=== PATIENT | female | born 1960 | race Caucasian/White ===

== ENCOUNTER → 2017-09-12 | Outpatient (CLI) | payer OTHER ==
[~2017-09-12] MED LIST: COLCHICINE0.6 M1 PO; INDOMETHACIN 2525 MG PO; NORCO 5-325 TA1 EAC1 PO
== END ==
LOC: M.RAD 17:19
DX: M79.671 Pain in right foot (principal)

== ENCOUNTER → 2017-12-26 | Outpatient (CLI) | payer OTHER | LOC: M.RAD 13:58 | DX: Z12.31 Encounter for screening mammogram for malignant neoplasm of breast (principal); M50.322 Other cervical disc degeneration at C5-C6 level ==

== ENCOUNTER → 2019-12-09 | Outpatient (CLI) | payer OTHER ==
--- NOTE | 2019-12-09 13:14 | 2DMMODE ---
[place] [address] 2 D/M-MODE ECHOCARDIOGRAM Name: CORTEZ LOTT Room: [facility]#: [id number] Admission: 12/09/19 Attend Phys: Reinier Freeman, Discharge: Date of : 64 Date of Service: 12/09/19 1313 Report #: [id number] THIS REPORT FOR: cc: Sarah Monterroso. Sarah Nielsen. Vinayak Mac MD [facility] ~ APPROVED REPORT Study performed: 12/09/2019 11:04:19 EXAM: Comprehensive 2D, Doppler, and color-flow Echocardiogram Patient Location: Out-Patient BSA: 2.02 HR: 54 bpm BP: 144/70 mmHg Other Information Study Quality: Fair Indications Assess for vegetation 2D Dimensions IVSd: 10.67 (7-11mm) LVOT Diam: 19.06 (18-24mm) LVDd: 40.25 mm PWd: 8.60 (7-11mm) Ascending Ao: 29.02 (22-36mm) LVDs: 23.11 (25-40mm) Aortic Root: 25.37 mm Volumes Left Atrial Volume (Systole) LA ESV Index: 18.60 mL/m2 Aortic Valve AoV Peak Morris.: 0.89 m/s AO Peak Gr.: 3.14 mmHg LVOT Max P.55 mmHg AO Mean Gr.: 1.78 mmHg LVOT Mean P.25 mmHg LVOT Max V: 0.80 m/s AO V2 VTI: 18.40 cm LVOT Mean V: 0.52 m/s SHARI (VTI): 2.59 cm2 LVOT V1 VTI: 16.73 cm Mitral Valve E/A Ratio: 1.03 [place] [address] 2 D/M-MODE ECHOCARDIOGRAM Name: CORTEZ LOTT Room: [facility]#: [id number] Admission: 12/09/19 Attend Phys: Reinier Freeman, Discharge: Date of : 64 Date of Service: 12/09/19 1313 Report #: [id number] MV Decel. Time: 155.40 ms MV E Max Morris.: 0.70 m/s MV PHT: 45.06 ms MVA (PHT): 4.88 cm2 TDI E/Lateral E': 4.67 E/Medial E': 8.75 Medial E' Morris.: 0.08 m/s Lateral E' Morris.: 0.15 m/s Pulmonary Valve PV Peak Morris.: 0.97 m/s PV Peak Gr.: 3.75 mmHg Tricuspid Valve RAP Estimate: 5.00 mmHg TR Peak Gr.: 20.38 mmHg RVSP: 25.38 mmHg PA Pressure: 25.38 mmHg Left Ventricle The left ventricle is normal size. There is normal LV segmental wall motion. There is normal left ventricular wall thickness. Left ventricular systolic function is normal. The left ventricular ejection fraction is within the normal range. LVEF is 55-60%. The left ventricular diastolic function is normal. Right Ventricle The right ventricle is normal size. The right ventricular systolic function is normal. Atria The left atrium size is normal. The right atrium size is normal. Aortic Valve The aortic valve is normal in structure. trace aortic regurgitation is present. There is no aortic valvular stenosis. Mitral Valve The mitral valve is normal in structure. There is no mitral valve regurgitation noted. No evidence of mitral valve stenosis. Tricuspid Valve The tricuspid valve is normal in structure. Mild tricuspid regurgitation[place] [address] 2 D/M-MODE ECHOCARDIOGRAM Name: CORTEZ LOTT Room: [facility]#: [id number] Admission: 12/09/19 Attend Phys: Reinier Freeman, Discharge: Date of : 64 Date of Service: 12/09/19 1313 Report #: [id number] The pulmonary valve is normal in structure. There is no pulmonic valvular regurgitation. Great Vessels The aortic root is normal in size. IVC is normal in size and collapses >50% with inspiration. Pericardium There is no pericardial effusion. <Conclusion> Left ventricular systolic function is normal. The left ventricular ejection fraction is within the normal range. <ELECTRONICALLY SIGNED> By: Vinayak Burnett MD, FACC 12/09/191312 12 12 Vinayak Burnett MD, FACC /INF
== END ==
LOC: M.CRD 10:56
PROVIDERS: ATTEND Internal Medicine Hematology & Oncology
DX: I07.1 Rheumatic tricuspid insufficiency (principal); C7A.8 Other malignant neuroendocrine tumors